=== PATIENT | female | born 1960 | race Caucasian/White ===

== ENCOUNTER 2020-03-13 03:44 | Emergency (ER) | payer BC, OTHER ==
--- NOTE | 2020-03-13 04:22 | EDM.PDOC ---
ED HPI GENERAL MEDICAL PROBLEM - General Chief Complaint: General Stated Complaint: CHEST PAIN Time Seen by Provider: 03/13/20 04:16 Source of Information: Reports: Patient History Limitations: Reports: No Limitations - History of Present Illness INITIAL COMMENTS - FREE TEXT/NARRATIVE: been having CP on-off, was exposed to covid and had test done but pending results, also had same problem last year and it was due to low K and was Tx for it but hadn't had time to recheck due to covid, did talk to Dr Marks and was told motrin helps then tonight felt worse so came in. denies fever cough chills. CP ok now but more concerned with K. Right Chest Pain Score (Numeric/FACES): 4 - Related Data Allergies Allergy/AdvReac Type Severity Reaction Status Date / Time bupropion [From Wellbutrin] Allergy Tachycardia Verified 03/13/20 03:59 escitalopram [From Lexapro] Allergy Tachycardia Verified 03/13/20 03:59 fluticasone Allergy Other Verified 03/13/20 03:59 [From Advair Diskus] salmeterol Allergy Other Verified 03/13/20 03:59 [From Advair Diskus] Home Meds: Home Meds Albuterol/Ipratropium [Combivent Respimat] 2 puff INH ASDIRECTED PRN 03/13/20 [History] Ascorbic Acid [Vitamin C] 1,000 mg PO DAILY 03/13/20 [History] Calcium Carb, Citrate/Vit D3 [Calcium + D3 ER Tablet] 1 each PO TID 03/13/20 [History] FLUoxetine HCl [Fluoxetine HCl] 20 mg PO DAILY 03/13/20 [History] Fexofenadine HCl [Roxanna Allergy] 60 mg PO DAILY 03/13/20 [History] Fluticasone Propionate [Flonase] 16 gm NS DAILY 03/13/20 [History] Levothyroxine Sodium [Synthroid] 100 mcg PO DAILY 03/13/20 [History] Mv-Mn/Iron/Folic Acid/Herb 190 [Vitamin D3 Complete Caplet] 1 each PO DAILY 03/13/20 [History] Zinc 50 mg PO DAILY 03/13/20 [History] busPIRone HCl [Buspirone HCl] 15 mg PO DAILY 03/13/20 [History] hydroCHLOROthiazide [Hydrochlorothiazide] 25 mg PO DAILY 03/13/20 [History] lisinopriL [Lisinopril] 10 mg PO DAILY 03/13/20 [History] Past Medical History Cardiovascular History: Reports: Hypertension Psychiatric History: Reports: Anxiety, Depression Endocrine/Metabolic History: Reports: Hypothyroidism - Infectious Disease History Infectious Disease History: Reports: Chicken Pox Social & Family History - Tobacco Use Smoking Status *Q: Never Smoker Second Hand Smoke Exposure: No - Recreational Drug Use Recreational Drug Use: No ED ROS GENERAL - Review of Systems Review Of Systems: Comprehensive ROS is negative, except as noted in HPI. ED EXAM, GENERAL - Physical Exam Exam: See Below Exam Limited By: No Limitations General Appearance: Alert, WD/WN, Anxious, Mild Distress Eye Exam: Bilateral Eye: PERRL (pupils ER @ 4mm) Ears: Hearing Grossly Normal Throat/Mouth: Normal Voice, No Airway Compromise Head: Atraumatic Neck: Non-Tender, Full Range of Motion Respiratory/Chest: No Respiratory Distress Cardiovascular: Regular Rate, Rhythm GI/Abdominal: Soft, Non-Tender Neurological: Alert, Oriented, Normal Cognition, Normal Gait, No Motor/Sensory Deficits Psychiatric: Anxious Skin Exam: Warm, Dry, Normal Color Lymphatic: No Adenopathy Course - Vital Signs Last Recorded V/S: Last Vital Signs Temp 36.4 C 03/13/20 03:47 Pulse 68 03/13/20 03:47 Resp 16 03/13/20 03:47 BP 178/80 H 03/13/20 03:47 Pulse Ox 98 03/13/20 03:47 - Orders/Labs/Meds Orders: Active Orders 24 hr Category Date Time Status EKG 12 Lead [EKG Documentation Completion] [RC] URGENT Care 03/13/20 03:58 Active Ketorolac [Toradol] Med 03/13/20 04:40 Once 15 mg IVPUSH ONETIME ONE Potassium Chloride [Klor-Con 10] Med 03/13/20 04:40 Once 40 meq PO ONETIME ONE Labs: Laboratory Tests 03/13/20 03/13/20 03/13/20 Range/Units 04:00 04:00 04:15 WBC 8.2 (5.0-10.0) 10^3/uL RBC 5.15 (4.2-5.4) 10^6/uL Hgb 15.9 (12.0-16.0) g/dL Hct 45.6 (37.0-47.0) % MCV 88.5 (80-100) fL MCH 30.9 (27.0-34.0) pg MCHC 34.9 (33.0-35.0) g/dL Plt Count 276 (150-450) 10^3/uL Neut % (Auto) 71.3 (42.2-75.2) % Lymph % (Auto) 20.4 L (20.5-50.1) % [place] % (Auto) 7.1 (2-8) % Eos % (Auto) 1.0 (1.0-3.0) % Baso % (Auto) 0.2 (0.0-1.0) % Sodium 136 (136-145) mmol/L Potassium 3.1 L (3.5-5.1) mmol/L Chloride 97 L (98-107) mmol/L Carbon Dioxide 29 (21-32) mmol/L Anion Gap 13.1 H (7-13) mEq/L BUN 10 (7-18) mg/dL Creatinine 0.99 (0.55-1.02) mg/dL Est Cr Clr Drug Dosing 58.69 mL/min Estimated GFR (MDRD) 58 BUN/Creatinine Ratio 10.1 (No establ ref range) Glucose 228 H (74-99) mg/dL Calcium 9.5 (8.5-10.1) mg/dL Total Bilirubin 0.5 (0.2-1.0) mg/dL AST 38 H (15-37) U/L ALT 44 (14-59) U/L Alkaline Phosphatase 63 (46-116) U/L Troponin I < 0.017 (0.000-0.056) ng/mL Total Protein 8.1 (6.4-8.2) g/dL Albumin 3.7 (3.4-5.0) g/dL Globulin 4.4 Albumin/Globulin Ratio 0.8 Urine Color Yellow (YELLOW) Urine Appearance Clear (CLEAR) Urine pH 6.0 (5.0-9.0) Ur Specific [place] 1.010 (1.005-1.030) Urine Protein Negative (NEGATIVE) Urine Glucose (UA) Negative (NEGATIVE) Urine Ketones Negative (NEGATIVE) Urine Occult Blood Negative (NEGATIVE) Urine Nitrite Negative (NEGATIVE) Urine Bilirubin Negative (NEGATIVE) Urine Urobilinogen 0.2 (0.2-1.0) mg/dL Ur Leukocyte Esterase Negative (NEGATIVE) - Re-Assessments/Exams Free Text/Narrative Re-Assessment/Exam: 03/13/20 04:41 results discussed with pt who is feeling bit more relaxed now. states she got anxious over the covid thing. Departure - Departure Time of Disposition: 04:41 Disposition: Home, Self-Care 01 Condition: Good Clinical Impression: Anterior chest wall pain, Hypokalemia - Discharge Information Instructions: Chest Wall Pain, [id number] Forms: ED Department Discharge Additional Instructions: 1) rest 2) avoid vigorous activity 3) eat more potassium rich foods 4) follow up with family doctor 5) return if there is any change or concern Sepsis Event Note (ED) - Evaluation Sepsis Screening Result: No Definite Risk - Focused Exam Vital Signs: Vital Signs Temp Pulse Resp BP Pulse Ox 03/13/20 03:47 36.4 C 68 16 178/80 H 98 - My Orders Last 24 Hours: My Active Orders 03/13/20 03:58 EKG 12 Lead [EKG Documentation Completion] [RC] URGENT 03/13/20 04:40 Ketorolac [Toradol] 15 mg IVPUSH ONETIME ONE Potassium Chloride [Klor-Con 10] 40 meq PO ONETIME ONE - Assessment/Plan Last 24 Hours: My Active Orders 03/13/20 03:58 EKG 12 Lead [EKG Documentation Completion] [RC] URGENT 03/13/20 04:40 Ketorolac [Toradol] 15 mg IVPUSH ONETIME ONE Potassium Chloride [Klor-Con 10] 40 meq PO ONETIME ONE
[2020-03-13 04:23] LABS: ANION GAP 13.1 mEq/L (7-13); CHLORIDE,CL 97 mmol/L (98-107); SODIUM,NA 136 mmol/L (136-145)
[2020-03-13] MEDS ORDERED: Ketorolac 30 MG/ML SDV IVPUSH ONE (04:40)
[2020-03-13] MEDS ORDERED: Potassium Chloride 10 MEQ Tab.ER PO ONE (04:40)
== END 2020-03-13 05:00 | disposition home or self-care (01) ==
LOC: DL.ED 03:44
DX: R07.89 Other chest pain (principal); E87.6 Hypokalemia; I10 Essential (primary) hypertension; F41.9 Anxiety disorder, unspecified; F32.9 Major depressive disorder, single episode, unspecified; E03.9 Hypothyroidism, unspecified; Z88.8 Allergy status to other drugs, medicaments and biological substances; Z79.899 Other long term (current) drug therapy
CPT/HCPCS: 36415; 80053; 81003; 84484; 85025; 93005; 96374; 99285; A9270; J1885

== ENCOUNTER 2023-01-31 01:18 | Emergency (ER) | payer BC ==
[2023-01-31] MEDS: Sodium Chloride 0.9% 10 ML Syringe FLUSH PRN (01:53)
[2023-01-31 01:59] LABS: BASOPHILS PERCENT AUTO 0.3 % (0.0-1.0); EOSINOPHILS PERCENT AUTO 4.1 % (1.0-3.0); HEMOGLOBIN 13.9 g/dL (12.0-16.0); LYMPHOCYTES PERCENT AUTO 41.4 % (20.5-50.1); MEAN CORPUSCULAR HEMOGLOBIN 30.8 pg (27.0-34.0); MEAN CORPUSCULAR HGB CONC 33.1 g/dL (33.0-35.0); MEAN CORPUSCULAR VOLUME 93.1 fL (80-100); MONOCYTES PERCENT AUTO 11.7 % (2-8); NEUTROPHILS PERCENT AUTO 42.5 % (42.2-75.2); PLATELET COUNT,PLT 272 10^3/uL (150-450); RED BLOOD CELL COUNT 4.51 10^6/uL (4.2-5.4); WHITE BLOOD CELL COUNT,WBC 7.5 10^3/uL (5.0-10.0)
[2023-01-31 02:23] LABS: ALBUMIN 3.3 g/dL (3.4-5.0); ANION GAP 12.1 mEq/L (7-13); BILIRUBIN TOTAL 0.2 mg/dL (0.2-1.0); BUN/CREATININE RATIO 18.2 (No establ ref range); CALCIUM 9.3 mg/dL (8.5-10.1); CREATININE 0.99 mg/dL (0.55-1.02); EST CRCL DRUG DOSING (CG) 58.76 mL/min; POTASSIUM,K 3.1 mmol/L (3.5-5.1); PROTEIN TOTAL,TP 7.3 g/dL (6.4-8.2)
[2023-01-31 02:26] LABS: A/G RATIO 0.83
== END 2023-01-31 02:53 | disposition home or self-care (01) ==
LOC: DL.ED 01:18
DX: R07.89 Other chest pain (principal); I10 Essential (primary) hypertension; E03.9 Hypothyroidism, unspecified; Z88.8 Allergy status to other drugs, medicaments and biological substances; Z79.899 Other long term (current) drug therapy
CPT/HCPCS: 36415; 80053; 84484; 85025; 93005; 93010; 99284; 99285; J3490